=== PATIENT | female | born 2000 | race Caucasian/White ===

== ENCOUNTER 2018-10-10 03:32 | Emergency (ER) | payer OTHER ==
[~2018-10-10 03:32] MED LIST: ATARAX 25MG25 MG/TAB PO; BENTYL 20MG20 MG/TAB PO; ENTOCORT EC3 MG PO; FIBER CHOICE1 CTB PO; MIRALAX119G PO; PRILOSEC 20MG20 MG PO; SINGULAIR 110 MG/TAB PO
[2018-10-10 03:44] VITALS: TEMP 99
[2018-10-10 04:25] LABS: ALBUMIN 4.5 gm/dL (3.5-5.0); BILIRUBIN,TOTAL 0.1 mg/dL (0.0-1.0); CALCIUM 9.2 mg/dL (8.4-10.2); CREATININE, serum 0.73 mg/dL (0.52-1.25); POTASSIUM 3.5 mmol/L (3.4-5.0); TOTAL PROTEIN 7.8 gm/dL (6.4-8.2)
[2018-10-10 05:43] LABS: COLLECTION METHOD CLEAN CATCH
[2018-10-10 05:52] LABS: MUCOUS Present /lpf; PH 6 (5-8); SQUAMOUS EPITHELIAL None Seen /hpf; URINE APPEARANCE Clear; URINE BACTERIA None Seen /hpf; URINE BILIRUBIN Negative (NEGATIVE); URINE BLOOD Negative (NEGATIVE); URINE COLOR Straw; URINE GLUCOSE Negative (NEGATIVE); URINE KETONE Negative (NEGATIVE); URINE LEUKOCYTE ESTERASE Negative (NEGATIVE); URINE NITRATE Negative (NEGATIVE); URINE PROTEIN(semi-quant) Negative (NEGATIVE); URINE RBC 0-2 /hpf; URINE UROBILINOGEN Negative (NEGATIVE)
[2018-10-10 05:56] LABS: TRICYCLIC ANTIDEPRESS URINE NEGATIVE
[2018-10-10 07:51] VITALS: BP 109/70; PULSE 90
== END 2018-10-10 08:19 | disposition home or self-care (01) ==
LOC: COL.ER 03:32
PROVIDERS: Emergency Medicine
DX: F10.129 Alcohol abuse with intoxication, unspecified (principal); F41.9 Anxiety disorder, unspecified; F32.9 Major depressive disorder, single episode, unspecified; Y90.6 Blood alcohol level of 120-199 mg/100 ml

== ENCOUNTER 2020-01-21 18:35 | Emergency (ER) | payer OTHER ==
[~2020-01-21] VITALS: Ht 154.9 cm; Wt 90.0 kg
[2020-01-21 18:48] VITALS: TEMP 98.8
[2020-01-21 19:11] LABS: BASO # 0.1 (0.0-0.2); BASO % 0.6 % (0.0-2.0); EOS # 0.1 (0.0-0.7); EOS % 1.1 % (0-4.0); GRAN # 7.3 (1.4-6.5); HEMATOCRIT 41.3 % (37.0-47.0); HEMOGLOBIN 13.5 g/dl (12.5-16.0); LYMPH # 2.5 (1.2-3.4); LYMPH % 23.2 % (20.0-51.0); MEAN CELL VOLUME 90 fl (80.0-100.0); MEAN CORPUSCULAR HEMOGLOBIN 29 pg (27.0-31.0); MEAN CORPUSCULAR HGB CONC 33 g/dl (33.0-37.0); MEAN PLATELET VOLUME 10.9 fl (7.4-10.4); MONO # 0.8 (0.1-0.6); MONO % 7.7 % (1.7-9.3); PLATELET COUNT 227 K/mm3 (130-400); RED BLOOD COUNT 4.61 M/mm3 (4.10-5.30); REDCELL DISTRIBUTION WIDTH-CV 12.5 % (11.5-14.5)
[2020-01-21 19:19] LABS: COLLECTION METHOD CLEAN CATCH
[2020-01-21 19:22] LABS: ALANINE AMINOTRANSFERASE 17 U/L (4-34); ALBUMIN 4.8 gm/dL (3.5-5.0); ALKALINE PHOSPHATASE 77 U/L (50-136); ANION GAP 8 mmol/L (7-16); AST,SGOT 29 U/L (15-37); BILIRUBIN,TOTAL 0.4 mg/dL (0.0-1.0); BLOOD UREA NITROGEN 13 mg/dL (7-17); CARBON DIOXIDE 25 mmol/L (22-30); CHLORIDE 106 mmol/L (98-107); CREATININE, serum 0.85 (0.52-1.25); GLUCOSE 101 mg/dL (74-106); LIPASE 72 U/L (23-300); POTASSIUM 3.9 mmol/L (3.4-5.0); SODIUM 139 mmol/L (137-145); TOTAL PROTEIN 8.3 gm/dL (6.4-8.2)
[2020-01-21 19:25] LABS: MUCOUS Present /lpf; PH 6 (5-8); SQUAMOUS EPITHELIAL 0-2 /hpf; URINE APPEARANCE Clear; URINE BACTERIA None Seen /hpf; URINE BILIRUBIN Negative (NEGATIVE); URINE BLOOD 1+ (NEGATIVE); URINE COLOR Yellow; URINE GLUCOSE Negative (NEGATIVE); URINE KETONE Negative (NEGATIVE); URINE LEUKOCYTE ESTERASE Negative (NEGATIVE); URINE NITRATE Negative (NEGATIVE); URINE PROTEIN(semi-quant) Negative (NEGATIVE); URINE RBC 0-2 /hpf; URINE UROBILINOGEN Negative (NEGATIVE)
[2020-01-21 19:27] LABS: C-REACTIVE PROTEIN < 0.5 mg/dL (0.0-0.9)
[2020-01-21] MEDS ORDERED: NORCO 325 MG-51 TAB PO (20:42)
[2020-01-21 20:58] VITALS: BP 140/88; PULSE 91
== END 2020-01-21 21:00 | disposition home or self-care (01) ==
LOC: COL.ER 18:35
PROVIDERS: Family Medicine
DX: N13.2 Hydronephrosis with renal and ureteral calculous obstruction (principal)
CPT/HCPCS: J1885; J2270; J2405; J7120; Q9967

== ENCOUNTER → 2020-01-26 | Outpatient (CLI) | payer OTHER ==
[~2020-01-26] MED LIST changes: +NORCO 325 MG-51 TAB PO
== END ==
LOC: COL.RAD 14:18
DX: N30.01 Acute cystitis with hematuria (principal); N20.0 Calculus of kidney

== ENCOUNTER 2022-01-25 13:21 | Emergency (ER) | payer OTHER ==
[~2022-01-25] VITALS: Ht 157.5 cm; Wt 86.4 kg
[2022-01-25 13:45] VITALS: TEMP 98.1
[2022-01-25 14:52] VITALS: BP 118/68; PULSE 72
== END 2022-01-25 14:52 | disposition home or self-care (01) ==
LOC: COL.ER 13:21
DX: S06.0X0A Concussion without loss of consciousness, initial encounter (principal); W22.01XA Walked into wall, initial encounter; Y92.59 Other trade areas as the place of occurrence of the external cause